=== PATIENT | female | born 1965 ===

== ENCOUNTER 2017-12-17 00:07 | Observation (INO) | payer SELFPAY ==
[2017-12-17 00:15] VITALS: BMI 40.6
--- NOTE | 2017-12-17 01:36 | ED PDOC ---
HPI: General Adult Time Seen by Provider: 12/17/17 00:24 Chief Complaint (Nursing): Weakness/Neurological Deficit Chief Complaint (Provider): Weakness/Neurological Deficit History Per: Patient History/Exam Limitations: no limitations Onset/Duration Of Symptoms: Days (x1) Additional Complaint(s): 52 year old female with a history of diabetes, hypertension, and high cholesterol presents to the ED with numbness to the left arm and left leg onset 10 am yesterday. Patient states the numbness starts in left elbow and goes to hand. She also reports that the numbness goes from mid lira to distal ankle in lower extremities. Patient has a slight throbbing headache on the left side, but denies weakness, pain, nausea, vomiting, fever, vision changes or any other medical complaints. PMD: none provided NIHSS Stroke Scale - Date/Time Evaluation Performed Date Performed: 12/17/17 - How Severe is the Stroke Level of Consciousness: 0=Alert LOC to Questions: 0=Both comments correct LOC to commands: 0=Obeys both correctly Best Gaze: 0=Normal Visual: 0=No visual loss Facial: 0=Normal Motor Arm - Left: 0=No drift Motor Arm - Right: 0=No drift Motor Leg - Left: 0=No drift Motor Leg - Right: 0=No drift Limb Ataxia: 0=Absent Sensory: 1=Mild to moderate loss Best Language: 0=No aphasia Dysarthia: 0=Normal articulation Extinction & Inattention (Neglect): 0=Normal, no object Score: 1 Past Medical History Reviewed: Historical Data, Nursing Documentation, Vital Signs Vital Signs: Last Vital Signs Temp 98.1 F 12/17/17 03:00 Pulse 78 12/17/17 03:00 Resp 13 12/17/17 03:00 BP 137/79 12/17/17 03:00 Pulse Ox 98 12/17/17 03:00 - Medical History PMH: Diabetes, HTN, Hypercholesterolemia - Family History Family History: States: Unknown Family Hx - Home Medications Home Medications: Ambulatory Orders Medication Instructions Recorded Atorvastatin [Lipitor] 40 mg PO DAILY 12/17/17 Azilsartan Medoxomil [Edarbi] 40 mg PO DAILY 12/17/17 Glimepiride [Amaryl] 1 mg PO BID 12/17/17 Metformin HCl [Glucophage] 1,000 mg PO BID 07/21/18 - Allergies Allergies/Adverse Reactions: Allergies Allergy/AdvReac Type Severity Reaction Status Date / Time No Known Allergies Allergy Verified 12/17/17 00:33 Review of Systems ROS Statement: Except As Marked, All Systems Reviewed And Found Negative Neurological: Positive for: Numbness (left arm and leg), Headache (left sided and throbbing) Physical Exam - Reviewed Nursing Documentation Reviewed: Yes Vital Signs Reviewed: Yes - Physical Exam Appears: Positive for: Non-toxic, No Acute Distress Head Exam: Positive for: ATRAUMATIC, NORMOCEPHALIC Skin: Positive for: Normal Color, Warm, Dry Eye Exam: Positive for: EOMI, Normal appearance, PERRL Neck: Positive for: Normal, Painless ROM Cardiovascular/Chest: Positive for: Regular Rate, Rhythm. Negative for: Murmur Respiratory: Positive for: Normal Breath Sounds. Negative for: Respiratory Distress Gastrointestinal/Abdominal: Positive for: Normal Exam, Soft. Negative for: Tenderness Extremity: Positive for: Normal ROM (upper and lower) Neurologic/Psych: Positive for: Alert, Oriented (x3), Other (Sensory subjective decreased sensation of left lower leg compared to right ). Negative for: Motor/ Sensory Deficits - Laboratory Results Result Diagrams: 12/17/17 01:38 12/17/17 01:38 - ECG O2 Sat by Pulse Oximetry: 98 (RA) Pulse Ox Interpretation: Normal Medical Decision Making Medical Decision Making: Time: 00:33 Initial Impression: 52 year old presenting with left sided numbness and headache On assessment, patient is well appearing and vital signs are normal. Exam shows no focal deficits. Differential diagnoses include but are not limited to: complicated migrane versus CVA versus peripheral paresthesia verses electrolyte abnormality Initial Plan: --CT head w/o contrast --EKG --BMP --Troponin I --CBC w/ differentials --Chest x-ray --Glucose --Tylenol 325mg 650mg PO Time: 1:57 CT Head w/o contrast: FINDINGS: Brain: Normal. No hemorrhage. No significant white matter disease. No edema. Ventricles: Normal. No ventriculomegaly. Bones/joints: Normal. No acute fracture. Sinuses: Normal as visualized. No acute sinusitis. Mastoid air cells: Normal as visualized. No mastoid effusion. Soft tissues: Normal. IMPRESSION: No acute intracranial pathology. Given age and risk factors, will admit for MRI to r/o CVA. Dr. Nunn on consult , Dr. Pelayo is aware. Patient currently stable for Tele OBS admission. Scribe Attestation: Documented by Carmencita Salazar, acting as a scribe for Cristian Mathew MD Provider Scribe Attestation: All medical record entries made by the Scribe were at my direction and personally dictated by me. I have reviewed the chart and agree that the record accurately reflects my personal performance of the history, physical exam, medical decision making, and the department course for this patient. I have also personally directed, reviewed, and agree with the discharge instructions and disposition. Disposition - Clinical Impression Clinical Impression: Numbness - Patient ED Disposition Is Patient to be Admitted: Yes - Disposition Disposition Time: 02:30 Condition: FAIR
[2017-12-17 01:43] LABS: BASO # 0.1 K/uL (0.0-0.2); BASO % 0.7 % (0.0-2.0); EOS # 0.2 K/uL (0.0-0.7); EOS % 2.1 % (0.0-4.0); HEMOGLOBIN 13.3 g/dL (12.0-16.0); LYMPH # 2.5 K/uL (1.0-4.3); MEAN CELL VOLUME 87.9 fl (81.0-99.0); MEAN CORPUSCULAR HGB CONC 34.2 g/dL (33.0-37.0); MEAN PLATELET VOLUME 9.6 fl (7.2-11.7); MONO # 0.6 K/uL (0.0-0.8); MONO % 6.7 % (0.0-10.0); NEUT # 5.3 K/uL (1.8-7.0); NEUT % 61.5 % (50.0-75.0); RBC 4.42 Mil/uL (3.80-5.20); RED CELL DISTRIBUTION WIDTH 13.5 % (11.5-14.5); WHITE BLOOD COUNT 8.7 K/uL (4.8-10.8)
[2017-12-17 01:50] LABS: CALCIUM 9.3 mg/dL (8.4-10.2); GFR AFRICAN-AMERICAN > 60; GFR NON-AFRICAN AMERICAN > 60
[2017-12-17 02:05] LABS: BLOOD UREA NITROGEN 20 mg/dl (7-17)
--- NOTE | 2017-12-17 02:52 | CP.PCM.HP ---
History of Present Illness - History of Present Illness History of Present Illness: CC: LUE/LLE numbness HPI: This is a 52 y/o female with HTN, DM2, and HLD who presents with LUE and LLE numbness which started about 10 AM yesterday. Numbess goes from elbow to hand and lira to ankle. Denies any focal weakness, denies any visual deficits, speech problems, or swallowing problems. Does state that she has had some LUNDY on the L side. No f/c/n/v/d. No CP or SOB. ROS: 14 systems reviewed, negative other than HPI MHx: HTN, HLD, DM2 SHx: C section Allergies: NKDA Medications: per med rec Family Hx: No relevant findings Social Hx: Lives at home, no tobacco, no EtOH Present on Admission - Present on Admission Any Indicators Present on Admission: No Past Patient History - Past Social History Smoking Status: Never Smoked - CARDIAC Hx Hypercholesterolemia: Yes Hx Hypertension: Yes - ENDOCRINE/METABOLIC Hx Diabetes Mellitus Type 2: Yes - PSYCHIATRIC Hx Substance Use: No - SURGICAL HISTORY Hx Section: Yes - ANESTHESIA Hx Anesthesia: Yes Meds Allergies/Adverse Reactions: Allergies Allergy/AdvReac Type Severity Reaction Status Date / Time No Known Allergies Allergy Verified 12/17/17 00:33 Physical Exam - Constitutional Appears: No Acute Distress - Head Exam Head Exam: ATRAUMATIC, NORMOCEPHALIC - Eye Exam Eye Exam: EOMI, PERRL - ENT Exam ENT Exam: Mucous Membranes Moist - Neck Exam Neck exam: Positive for: Full Rom - Respiratory Exam Respiratory Exam: Clear to Auscultation Bilateral, NORMAL BREATHING PATTERN - Cardiovascular Exam Cardiovascular Exam: REGULAR RHYTHM, +S1, +S2 - GI/Abdominal Exam GI & Abdominal Exam: Normal Bowel Sounds, Soft - Extremities Exam Extremities exam: Positive for: full ROM, normal inspection - Neurological Exam Neurological exam: Alert, CN II-XII Intact - Psychiatric Exam Psychiatric exam: Normal Affect, Normal Mood - Skin Skin Exam: Dry, Warm Results - Vital Signs Recent Vital Signs: Last Vital Signs Temp 98.4 F 12/17/17 00:25 Pulse 74 12/17/17 00:25 Resp 16 12/17/17 00:25 BP 149/75 12/17/17 00:25 Pulse Ox 98 12/17/17 02:18 - Labs Result Diagrams: 12/17/17 01:38 12/17/17 01:38 Labs: Laboratory Results - last 24 hr 12/17/17 12/17/17 12/17/17 00:44 01:38 01:38 WBC 8.7 RBC 4.42 Hgb 13.3 Hct 38.8 MCV 87.9 MCH 30.0 MCHC 34.2 RDW 13.5 Plt Count 258 MPV 9.6 Neut % (Auto) 61.5 Lymph % (Auto) 29.0 [place] % (Auto) 6.7 Eos % (Auto) 2.1 Baso % (Auto) 0.7 Neut # (Auto) 5.3 Lymph # (Auto) 2.5 [place] # (Auto) 0.6 Eos # (Auto) 0.2 Baso # (Auto) 0.1 Sodium 140 Potassium 4.5 Chloride 102 Carbon Dioxide 29 Anion Gap 14 BUN 20 H Creatinine 0.6 L Est GFR ( Amer) > 60 Est GFR (Non-Af Amer) > 60 POC Glucose (mg/dL) 107 Random Glucose 120 H Calcium 9.3 Troponin I < 0.0120 - EKG Data EKG Interpreted by: Myself EKG shows normal: Sinus rhythm Rate: Normal - Imaging and Cardiology CT scan - head Status: Image reviewed by me (no significant findings noted) Assessment & Plan (1) TIA (transient ischemic attack) Assessment and Plan: 52 y/o female with HTN, DM2, and HLD presenting with TIA vs. CVA (NIH of ~1) with LUE/LLE numbness. 1) r/o CVA/TIA -obs tele -serial trops -AM Echo, dopplers, MRI -Neuro consult -ASA 81 daily -Cont statin -DM2 and HTN control 2) HTN -- cont home medications 3) DM2 -- SSI and DM diet for today, can resume home DM2 regimen from AM 4) DVT PPx -- SQ Lovenox Status: Acute (2) DM2 (diabetes mellitus, type 2) Status: Acute (3) HTN (hypertension) Status: Acute (4) HLD (hyperlipidemia) Status: Acute (5) DVT prophylaxis Status: Acute
[2017-12-17 08:08] VITALS: RESP 20
[2017-12-17] MEDS: Insulin Lispro (humaLOG) 100 Units/ml Inj SC SCH ×3 (08:12→16:25)
--- NOTE | 2017-12-17 08:43 | CT ---
Date of service: 12/17/2017 PROCEDURE: CT HEAD WITHOUT CONTRAST. HISTORY: L arm/leg numbness COMPARISON: None available. TECHNIQUE: Axial computed tomography images were obtained through the head/brain without intravenous contrast. Radiation dose: Total exam DLP = 820.75 mGy-cm. This CT exam was performed using one or more of the following dose reduction techniques: Automated exposure control, adjustment of the mA and/or kV according to patient size, and/or use of iterative reconstruction technique. FINDINGS: HEMORRHAGE: No intracranial hemorrhage. BRAIN: No mass effect or edema. No atrophy or chronic microvascular ischemic changes. VENTRICLES: Unremarkable. No hydrocephalus. CALVARIUM: Unremarkable. PARANASAL SINUSES: Unremarkable as visualized. No significant inflammatory changes. MASTOID AIR CELLS: Unremarkable as visualized. No inflammatory changes. OTHER FINDINGS: None. IMPRESSION: Normal CT of the Head. No intracranial mass, hemorrhage or evidence of acute infarct. The preliminary findings for this examination were reported by [facility] at 1:57 a.m. on 12/17/2017. There is concurrence of this report with the preliminary findings.
[2017-12-17] MEDS ORDERED: GlipiZIDE 2.5 mg SR Tab PO SCH (09:00)
[2017-12-17] MEDS ORDERED: Patient's Own Med (Azilsartan Medoxomil [Edarbi] 40 mg) PO SCH (09:00)
[2017-12-17] MEDS ORDERED: Enoxaparin 40 mg Syringe SC SCH (09:00)
--- NOTE | 2017-12-17 09:46 | MRI ---
Date of service: 12/17/2017 PROCEDURE: MRI BRAIN WITHOUT CONTRAST HISTORY: L arm and leg numbness COMPARISON: None. TECHNIQUE: Multiplanar, multisequence MR images of the brain were obtained without intravenous contrast enhancement. FINDINGS: HEMORRHAGE: None DWI: No evidence of an acute or early subacute infarction. BRAIN PARENCHYMA: No mass effect or edema. Minimal chronic periventricular white matter signal abnormality on FLAIR images, consistent with chronic microvascular ischemic change. VENTRICLES: Unremarkable. No hydrocephalus. CRANIUM: Unremarkable. ORBITS: Grossly unremarkable. PARANASAL SINUSES/MASTOIDS: Clear VASCULAR SYSTEM: Skull base flow voids intact. OTHER FINDINGS: None. IMPRESSION: No evidence of acute infarct. Minimal chronic white matter ischemic change. Otherwise unremarkable examination.
[2017-12-17 11:49] LABS: HDL CHOLESTEROL 41 MG/DL (30-70)
[2017-12-17 11:59] LABS: LDL CHOLESTEROL 104 mg/dL (0-129)
[2017-12-17 13:14] VITALS: PULSE 75
--- NOTE | 2017-12-17 13:23 | CARD ---
APPROVED REPORT Date of service: 12/17/2017 EXAM: Two-dimensional and M-mode echocardiogram with Doppler and color Doppler. Other Information Quality : AverageRhythm : INDICATION CVA/TIA 2D DIMENSIONS IVSd1.51 (0.7-1.1cm)LVDd3.54 (3.9-5.9cm) PWd1.18 (0.7-1.1cm)LVDs2.42 (2.5-4.0cm) FS (%) 31.5 % M-Mode DIMENSIONS Left Atrium (MM)4.05 (2.5-4.0cm)IVSd1.60 (0.7-1.1cm) Aortic Root3.48 (2.2-3.7cm)LVDd4.23 (4.0-5.6cm) Aortic Cusp Exc.2.28 (1.5-2.0cm)PWd1.56 (0.7-1.1cm) FS (%) 32 %LVDs2.88 (2.0-3.8cm) PWs1.92 cm Aortic Valve AI P 1/2 Idpc752tr Mitral Valve MV E Mlkqmtsi15.8cm/sMV DECEL [id number] A Qzklirto83.8cm/s MV CWH236inH/A ratio0.8MVA (PHT)2.13cm2 TDI Lateral E' Peak V8.72cm/sMedial E' Peak V5.62cm/sE/Lateral E'7.3 E/Medial E'11.4 Tricuspid Valve TR Peak Tpnotxja860ij/sRAP ZIMWXRDO26qsDeLM Peak Gr.36mmHg QQMG09skEq LEFT VENTRICLE The left ventricle is normal size. There is mild to moderate concentric left ventricular hypertrophy. The left ventricular function is normal. The left ventricular ejection fraction is within the normal range. LVEF 70% There is normal LV segmental wall motion. Tissue Doppler imaging reveals abnormal left ventricular diastolic dysfunction. Transmitral Doppler flow pattern is Grade I-abnormal relaxation pattern. No left ventricle thrombus noted on this study. There is no ventricular septal defect visualized. There is no left ventricular aneurysm. There is no mass noted in the left ventricle. RIGHT VENTRICLE The right ventricle is mildly dilated. The right ventricle is mildly to moderately hypertrophied. Systolic function is mildly to moderately reduced. ATRIA The left atrium size is normal. The right atrium size is normal. The interatrial septum is intact with no evidence for an atrial septal defect. AORTIC VALVE The aortic valve is thickened but opens well. There is moderate to severe aortic regurgitation. There is no aortic valvular stenosis. There is no aortic valvular vegetation. MITRAL VALVE The mitral valve is normal in structure. There is no evidence of mitral valve prolapse. There is no mitral valve stenosis. There is no mitral valve regurgitation noted. TRICUSPID VALVE The tricuspid valve is normal in structure. There is moderate tricuspid regurgitation. PEAK REGURGITATION DOPPLER PRESSURE IS ELEVATED 30 MMHg There is no tricuspid valve prolapse or vegetation. There is no tricuspid valve stenosis. PULMONIC VALVE The pulmonary valve is normal in structure. There is no pulmonic valvular regurgitation. There is no pulmonic valvular stenosis. GREAT VESSELS The aortic root is normal in size. The ascending aorta is normal in size. The IVC is normal in size and collapses >50% with inspiration. PERICARDIAL EFFUSION The pericardium appears normal. There is no pleural effusion. <Conclusion> The left ventricle is normal size. There is mild to moderate concentric left ventricular hypertrophy. The left ventricular function is normal. The left ventricular ejection fraction is within the normal range. LVEF 70% Tissue Doppler imaging reveals abnormal left ventricular diastolic dysfunction. Transmitral Doppler flow pattern is Grade I-abnormal relaxation pattern. The right ventricle is mildly dilated. The right ventricle is mildly to moderately hypertrophied. Systolic function is mildly to moderately reduced. The aortic valve is thickened but opens well. There is moderate to severe aortic regurgitation. There is no aortic valvular stenosis.
--- NOTE | 2017-12-17 13:43 | CARD ---
APPROVED REPORT Date of service: 12/17/2017 EKG Measurement Heart [id number] VT [id number] <Conclusion> Normal sinus rhythm Normal ECG
--- NOTE | 2017-12-17 15:06 | RAD ---
Date of service: 12/17/2017 PROCEDURE: CHEST RADIOGRAPH, 1 VIEW HISTORY: numbness COMPARISON: None available. FINDINGS: LUNGS: Clear. PLEURA: No pneumothorax or pleural fluid seen. CARDIOVASCULAR: Normal. OSSEOUS STRUCTURES: No significant abnormalities. VISUALIZED UPPER ABDOMEN: Normal. OTHER FINDINGS: None. IMPRESSION: No active disease.
--- NOTE | 2017-12-17 15:37 | CP.PCM.DIS ---
Provider - Provider Date of Admission: 12/17/17 02:19 Attending physician: Lori Pelayo MD Time Spent in preparation of Discharge (in minutes): 45 Diagnosis - Discharge Diagnosis (1) Numbness Status: Acute (2) TIA (transient ischemic attack) Status: Acute Hospital Course - Lab Results Lab Results: Most Recent Lab Values WBC 8.7 K/uL (4.8-10.8) 12/17/17 01:38 RBC 4.42 Mil/uL (3.80-5.20) 12/17/17 01:38 Hgb 13.3 g/dL (12.0-16.0) 12/17/17 01:38 Hct 38.8 % (34.0-47.0) 12/17/17 01:38 MCV 87.9 fl (81.0-99.0) 12/17/17 01:38 MCH 30.0 pg (27.0-31.0) 12/17/17 01:38 MCHC 34.2 g/dL (33.0-37.0) 12/17/17 01:38 RDW 13.5 % (11.5-14.5) 12/17/17 01:38 Plt Count 258 K/uL (130-400) 12/17/17 01:38 MPV 9.6 fl (7.2-11.7) 12/17/17 01:38 Neut % (Auto) 61.5 % (50.0-75.0) 12/17/17 01:38 Lymph % (Auto) 29.0 % (20.0-40.0) 12/17/17 01:38 Bent % (Auto) 6.7 % (0.0-10.0) 12/17/17 01:38 Eos % (Auto) 2.1 % (0.0-4.0) 12/17/17 01:38 Baso % (Auto) 0.7 % (0.0-2.0) 12/17/17 01:38 Neut # (Auto) 5.3 K/uL (1.8-7.0) 12/17/17 01:38 Lymph # (Auto) 2.5 K/uL (1.0-4.3) 12/17/17 01:38 Bent # (Auto) 0.6 K/uL (0.0-0.8) 12/17/17 01:38 Eos # (Auto) 0.2 K/uL (0.0-0.7) 12/17/17 01:38 Baso # (Auto) 0.1 K/uL (0.0-0.2) 12/17/17 01:38 Sodium 140 mmol/l (132-148) 12/17/17 01:38 Potassium 4.5 MMOL/L (3.6-5.0) 12/17/17 01:38 Chloride 102 mmol/L (98-107) 12/17/17 01:38 Carbon Dioxide 29 mmol/L (22-30) 12/17/17 01:38 Anion Gap 14 (10-20) 12/17/17 01:38 BUN 20 mg/dl (7-17) H 12/17/17 01:38 Creatinine 0.6 mg/dl (0.7-1.2) L 12/17/17 01:38 Est GFR ( Amer) > 60 12/17/17 01:38 Est GFR (Non-Af Amer) > 60 12/17/17 01:38 POC Glucose (mg/dL) 107 mg/dL (65-110) 12/17/17 00:44 Random Glucose 120 mg/dL (65-105) H 12/17/17 01:38 Calcium 9.3 mg/dL (8.4-10.2) 12/17/17 01:38 Troponin I < 0.0120 ng/mL (0.00-0.120) 12/17/17 06:40 Triglycerides 102 mg/DL (0-149) 12/17/17 11:11 Cholesterol 167 mg/dL (0-199) 12/17/17 11:11 LDL Cholesterol Direct 104 mg/dL (0-129) 12/17/17 11:11 HDL Cholesterol 41 MG/DL (30-70) 12/17/17 11:11 - Hospital Course Hospital Course: 52 y/o female with HTN, DM2, and HLD who presents with LUE and LLE numbness which started about 10 AM yesterday. Numbess goes from elbow to hand and lira to ankle. Denies any focal weakness, denies any visual deficits, speech problems , or swallowing problems. Does state that she has had some LUNDY on the L side. No f/c/n/v/d. No CP or SOB. Patient received MRI/CT head which were both negative. Symptoms are resolved. Patient Hemoglobin A1C and Lipid panel were completed. Carotid dopplers and ECHO also completed. Discussed with Neuro. Patient intiated on asa and statin, and may follow up with Neuro and PCP in one week as outpatient. Patient is stable to be discharged home at this time. Discharge Exam - Head Exam Additional comments: Vitals Reviewed GEN: WDWN, alert, cooperative HEENT: NCAT, PERRL, EOMI HEART: RRR, +S1S2, NO MRG LUNG: CTAB, NO WRR ABD: soft, NT, ND, No HSM, No masses EXT: normal pedal pulses, normal capillary refill NEURO: awake, alert, no focal deficits SKIN: warm, dry PSYCH: normal mood, normal affect Discharge Plan - Follow Up Plan Condition: FAIR Disposition: HOME/ ROUTINE Instructions: Diabetes Type 2 (DC), Hand Numbness, Hypertension (DC) Additional Instructions: FOLLOW UP PCP AND NEUROLOGY DR. MC IN ONE WEEK. Referrals: Edgar Mc MD [Medical Doctor] -
[2017-12-17 16:28] VITALS: BP 135/77; TEMP 98.5; O2SAT 100
--- NOTE | 2017-12-17 17:04 | US ---
Date of service: 12/17/2017 PROCEDURE: Lateral duplex Doppler carotid arterial ultrasound examination HISTORY: CVA COMPARISON: Not available TECHNIQUE: Ultrasound examination of the carotid arteries was performed utilizing a linear array color Doppler transducer. FINDINGS: Right carotid artery: There is no intimal thickening seen. There is no atheromatous plaque identified in the CCA or ICA. Peak systolic velocity measurements: CCA: 72.9 cm/sec ICA: 51.9 ICA/ CCA peak systolic velocity ratio: 0.7 Antegrade flow demonstrated in the right vertebral artery. Left carotid artery: There is no intimal thickening seen. There is no atheromatous plaque identified in the CCA or ICA. Peak systolic velocity measurements: CCA: 79.8 cm/sec ICA: 65.0 ICA/CCA peak systolic velocity ratio: 0.8 Antegrade flow demonstrated in the left vertebral artery. IMPRESSION: No evidence of hemodynamically significant carotid arterial stenosis bilaterally (less than 50 percent).
== END 2017-12-17 18:05 | disposition home or self-care (01) ==
LOC: H.ER 00:07 → H.ERHOLD 02:19 → H.TEL 04:21
PROVIDERS: ADMIT Internal Medicine; ATTEND Internal Medicine
DX: G45.9 Transient cerebral ischemic attack, unspecified (principal); I10 Essential (primary) hypertension; E11.9 Type 2 diabetes mellitus without complications; E78.5 Hyperlipidemia, unspecified; E78.00 Pure hypercholesterolemia, unspecified
CPT/HCPCS: 70450; 70551; 71045; 80048; 80061; 82948; 83036; 84484; 85025; 93005; 93306; 93880; 99285; G0378; J1650